=== PATIENT | female | born 1980 | race Caucasian/White ===

== ENCOUNTER 2023-06-22 04:06 | Emergency (ER) | payer MEDICAID ==
[2023-06-22] MEDS ORDERED: predniSONE 20 MG Tab PO ONE (04:07)
[2023-06-22] MEDS ORDERED: Azithromycin 250 MG Tab PO ONE (04:07)
[2023-06-22 05:17] LABS: INFLUENZA A NAA POSITIVE (NEGATIVE); INFLUENZA B NAA NEGATIVE (NEGATIVE); RESPIRATORY SYNCYTIAL VIR NAA NEGATIVE (NEGATIVE)
[2023-06-22 05:18] LABS: CORONAVIRUS COVID-19 NAA NEGATIVE (NEGATIVE)
== END 2023-06-22 05:50 | disposition home or self-care (01) ==
LOC: FB.ED 04:06
DX: J10.1 Influenza due to other identified influenza virus with other respiratory manifestations (principal)
CPT/HCPCS: 0241U; 99283; 99284; A9270-GY; J7512

== ENCOUNTER 2023-11-04 20:16 | Emergency (ER) | payer MEDICAID ==
[2023-11-04] MEDS ORDERED: Silver Sulfadiazine 1% Crm 50 GM Tube TOP ONE (20:17)
[2023-11-04] MEDS ORDERED: Acetaminophen/HYDROcodone 325-5 MG Tab PO ONE (20:17)
== END 2023-11-04 21:15 | disposition home or self-care (01) ==
LOC: FB.ED 20:16
DX: L55.0 Sunburn of first degree (principal); E66.9 Obesity, unspecified; Z88.8 Allergy status to other drugs, medicaments and biological substances
CPT/HCPCS: 16000; 99282-25; 99283; A9270-GY

== ENCOUNTER 2024-08-07 19:28 | Emergency (ER) | payer SELFPAY | END 2024-08-07 20:14 | disposition home or self-care (01) | LOC: FB.ED 19:28 | DX: K64.4 Residual hemorrhoidal skin tags (principal); F17.210 Nicotine dependence, cigarettes, uncomplicated; Z88.6 Allergy status to analgesic agent; Z79.899 Other long term (current) drug therapy | CPT/HCPCS: 99283 ==

== ENCOUNTER 2024-08-27 21:13 | Emergency (ER) | payer SELFPAY ==
[2024-08-27] MEDS: diphenhydrAMINE 50 MG/ML SDV IM ONE (22:13)
== END 2024-08-27 22:30 | disposition home or self-care (01) ==
LOC: FB.ED 21:13
DX: L29.9 Pruritus, unspecified (principal); R23.8 Other skin changes; E66.9 Obesity, unspecified; Z88.8 Allergy status to other drugs, medicaments and biological substances; Z79.899 Other long term (current) drug therapy
CPT/HCPCS: 96372; 99282; J1200

== ENCOUNTER 2024-12-20 21:01 | Emergency (ER) | payer SELFPAY | END 2024-12-20 22:10 | disposition home or self-care (01) | LOC: FB.ED 21:01 | DX: J45.901 Unspecified asthma with (acute) exacerbation (principal); E66.9 Obesity, unspecified; Z72.0 Tobacco use; Z88.8 Allergy status to other drugs, medicaments and biological substances | CPT/HCPCS: 99284; J7512; J7620; A9270-GY ==